=== PATIENT | male | born 2000 | race Caucasian/White ===

== ENCOUNTER 2021-01-22 08:24 | Emergency (ER) | payer OTHER ==
[~2021-01-22] VITALS: Ht 180.3 cm; Wt 56.0 kg
[2021-01-22 10:04] VITALS: BP 117/70
== END 2021-01-22 10:14 | disposition home or self-care (01) ==
LOC: EMS 08:26
DX: S60.011A Contusion of right thumb without damage to nail, initial encounter (principal); W23.0XXA Caught, crushed, jammed, or pinched between moving objects, initial encounter; Y93.89 Activity, other specified; Y92.89 Other specified places as the place of occurrence of the external cause; Y99.8 Other external cause status
CPT/HCPCS: 99283